=== PATIENT | male | born 1990 | race Caucasian/White ===

== ENCOUNTER 2017-06-14 18:30 | Emergency (ER) | payer MEDICAID ==
[2017-06-14] MEDS ORDERED: Morphine INJ* 4 MG/ML 1 ML CARPUJECT IV ONE ×4 (19:03→21:26)
--- NOTE | 2017-06-14 19:52 | RAD ---
INDICATION: Dog bite to left hand COMPARISON: None. TECHNIQUE: 3 views of the left hand were obtained. FINDINGS: The adequately corticated bones are in normal alignment. No significant focal osseous abnormality or fracture is seen. Joint spaces appear maintained. IMPRESSION: Normal left hand radiograph. If the patient's symptoms persist, follow-up imaging is recommended.
--- NOTE | 2017-06-14 19:53 | ED ---
Upper Extremity Pain - HPI Summary HPI Summary: 26M presents with left hand injury from dog. The pit bull attacked his hand. The dog is a known dog and had his rabies up to date. patient is 10/10 pain. injury is only on left hand. limited ROM due to swelling. no numbness or tingling. has multiples laceration over the hand. is right handed. area is still bleeding. - History of Current Complaint Chief Complaint: EDAnimalBite Stated Complaint: LT WRIST & HAND INJURY Time Seen by Provider: 06/14/17 18:56 - Allergies/Home Medications Allergies/Adverse Reactions: Allergies Allergy/AdvReac Type Severity Reaction Status Date / Time Acetaminophen Allergy Swelling Verified 06/14/17 19:31 PMH/Surg Hx/FS Hx/Imm Hx Endocrine/Hematology History: Denies: Hx Anticoagulant Therapy Cardiovascular History: Denies: Hx Hypertension Infectious Disease History: No Infectious Disease History: Denies: Traveled Outside the [place] in Last 30 Days - Family History Known Family History: Positive: Cardiac Disease - Social History Alcohol Use: Occasionally Substance Use Type: Reports: None Smoking Status (MU): Unknown if Ever Smoked Review of Systems Negative: Fever Negative: Chest Pain Negative: Shortness Of Breath Positive: Edema - left hand Positive: Other - lacerations left hand All Other Systems Reviewed And Are Negative: Yes Physical Exam Triage Information Reviewed: Yes Vital Signs On Initial Exam: Initial Vitals Temp Pulse Resp BP Pulse Ox 98.6 F 95 22 128/57 98 06/14/17 18:42 06/14/17 18:42 06/14/17 18:42 06/14/17 18:42 06/14/17 18:42 Vital Signs Reviewed: Yes Appearance: Positive: Well-Appearing Skin: Positive: Warm, Dry, Other - lacs on dorsum hand: 2cm and 3cm, lac on lateral aspect left thumb 2cm, laceration on palmar aspect thumb 1cm, lac on left palm 3cm, multiple puncture wounds and scratches across left hand Head/Face: Positive: Normal Head/Face Inspection Eyes: Positive: Normal, Conjunctiva Clear Respiratory/Lung Sounds: Positive: Clear to Auscultation, Breath Sounds Present Cardiovascular: Positive: Normal, RRR Musculoskeletal: Positive: Limited @ - left hand, Other - good pulses, capillary refill<2 secs Neurological: Positive: Normal Psychiatric: Positive: Normal Procedures - Laceration/Wound Repair 1-5 Location: Other - left hand Description: Irregular Anesthesia: Local, 1.0% Length, Depth and Shape: lacs on dorsum hand: 2cm and 3cm, lac on lateral aspect left thumb 2cm, laceration on palmar aspect thumb 1cm, lac on left palm 3cm, Betadine Prep?: Yes Irrigated w/ Saline (ccs): 1,000 Laceration/Wound Explored: no foreign body removed Closure: Single Layer Suture Type: Prolene - 4-0 Number of Sutures: 8 - two on palm, one thumb, two side thumb, 1 dorsum and 2 dorsum. Layer Closure?: No Diagnostics - Vital Signs Vital Signs Temp Pulse Resp BP Pulse Ox 06/14/17 19:31 14 06/14/17 18:42 98.6 F 95 22 128/57 98 - Laboratory Lab Statement: Any lab studies that have been ordered have been reviewed, and results considered in the medical decision making process. Course/Dx - Course Course Of Treatment: 26M presents with left hand injury from dog. The pit bull attacked his hand. The dog is a known dog and had his rabies up to date. patient is 10/10 pain. injury is only on left hand. limited ROM due to swelling. no numbness or tingling. has multiples laceration over the hand. xray normal. irrigated extensively. placed 8 sutures, two on palm, one thumb, two side thumb, 1 dorsum and 2 dorsum. placed in thumb spica premade splint due to snuff box tenderness and can take off to clean lacerations. told to follow up with ortho. patient understands and agrees with plan. - Diagnoses Differential Diagnosis/HQI/PQRI: Positive: Fracture (Closed), Other - puncture, lacerations Provider Diagnoses: Dog bite, Laceration of left hand, Scaphoid fracture Discharge - Discharge Plan Condition: Good Disposition: HOME Prescriptions: Amoxicillin/Clavulanate TAB* [Augmentin TAB 875*] 875 mg PO BID #13 tab oxyCODONE TAB* [Roxycodone TAB 5 mg*] 5 mg PO Q6H PRN #20 tab MDD 4 PRN Reason: Pain Patient Education Materials: Care For Your Stitches (ED), Scaphoid Fracture (ED ) Referrals: No Primary Care Phys,NOPCP [Primary Care Provider] - Zoey Bush MD [Medical Doctor] - Additional Instructions: Wash area with soap and water once a day Place Neosporin on area Take augmentin twice a day for 7 days Return to ED to have sutures removed in 10-14 days Follow up with ortho You potential have a scaphoid fracture, Keep splint on area unless washing area Take ibuprofen every 6 hours and use narcotic for break through pain Place ice on area Return to ED if develop any sign of infection such as spreading redness, pus, or fever, or any new or worsening symptoms
[2017-06-14] MEDS ORDERED: Amoxicillin/Clavulanate TAB* 875 MG PO ONE (20:22)
[2017-06-14] MEDS ORDERED: Ondansetron INJ* 2 MG/ML VIAL IV ONE (21:26)
[2017-06-14] MEDS ORDERED: Lidocaine 1% INJ* 10 MG/ML 30 ML SDV ONE ×2 (21:46)
[2017-06-14] MEDS ORDERED: oxyCODONE TAB* 5 MG TAB PO ONE (22:25)
[2017-06-14] MEDS ORDERED: Tetan/Diph/Pertus SYR(Tdap)* 0.5 ML SYR(BOOSTRIX) use SYR IM ONE (22:26)
[2017-06-15 00:22] VITALS: BP 129/58
== END 2017-06-14 23:58 | disposition home or self-care (01) ==
LOC: ED 18:30
DX: S61.412A Laceration without foreign body of left hand, initial encounter (principal); S62.002A Unspecified fracture of navicular [scaphoid] bone of left wrist, initial encounter for closed fracture; W54.0XXA Bitten by dog, initial encounter; Y93.9 Activity, unspecified; Y92.9 Unspecified place or not applicable
CPT/HCPCS: 12002; 90471; 90715; 96374; 96375; 99285; A9270-GY; J2001; J2270; J2405

== ENCOUNTER 2019-04-13 17:30 | Emergency (ER) | payer MEDICAID, OTHER ==
[2019-04-13 20:44] LABS: Urine Appearance Cloudy; Urine Bilirubin Negative (Negative); Urine Blood Negative (Negative); Urine Color Yellow; Urine Glucose Negative (Negative); Urine Ketones Negative (Negative); Urine Nitrite Negative (Negative); Urine Protein Negative (Negative); Urine Specific Gravity 1.016 (1.010-1.030); Urine Urobilinogen Negative (Negative)
--- NOTE | 2019-04-13 20:56 | ED ---
Substance Abuse/Use - HPI Summary HPI Summary: This patient is a 28 year old M presenting to [facility] with a chief complaint of heroin use today and methamphetamine use 2 days ago. Pt is in the ED for detox request and says he is in "bad shape." He states he was on a heroin and methamphetamine binge for 1 month. Pt was previously at [facility] ([facility]) for marijuana use, but will re-enter the [facility] rehabilitation program tomorrow morning. Pt has been addicted to opiates since the age of 16 and has not taken Suboxone in 2-3 days. The pt rates the pain 10/ 10 in severity. Symptoms aggravated by nothing. Symptoms alleviated by nothing. Pt reports intermittent penile pain and is erythematous, back pain, right foot losing sensation, and right lower thigh pain. - History Of Current Complaint Chief Complaint: EDDetoxRequest Stated Complaint: NEED TO BE CHECKED OUT PER PT Time Seen by Provider: 04/13/19 18:53 Hx Obtained From: Patient Onset/Duration of Drug/ETOH Abuse: Days - heroin taken today, methamphetamine taken 2 days ago Ingestion History: Type/Name Of Drug - heroin and methamphetamine binge for 1 month Overdose Characteristics: Other - heroin was injected Aggravating Factor(s): Nothing Alleviating Factor(s): Nothing Associated Signs And Symptoms: Other: - positive - intermittent penile pain and is erythematous, back pain, right foot losing sensation, and right lower thigh pain - Allergies/Home Medications Allergies/Adverse Reactions: Allergies Allergy/AdvReac Type Severity Reaction Status Date / Time acetaminophen [From Tylenol] Allergy Hives Verified 04/13/19 17:35 PMH/Surg Hx/FS Hx/Imm Hx Previously Healthy: No Sensory History: Denies: Hx Cataracts, Hx Vision Problem, Hx Deafness, Hx Hearing Aid, Hx Hearing Problem, Hx Auditory Problems Opthamlomology History: Denies: Hx Cataracts, Hx Legally Blind EENT History: Denies: Hx Deafness, Hx Auditory Problems - Surgical History Surgical History: Yes Surgery Procedure, Year, and Place: pylonital cyst removal Infectious Disease History: Yes Infectious Disease History: Denies: Traveled Outside the [place] in Last 30 Days - Family History Known Family History: Positive: None - Social History Alcohol Use: Occasionally Hx Substance Use: Yes Substance Use Type: Reports: Heroin, Marijuana, Other Substance Use Comment - Amount & Last Used: meth Smoking Status (MU): Unknown if Ever Smoked Review of Systems Genitourinary: Other - positive - intermittent penile pain and is erythematous Musculoskeletal: Other - positive - back pain and right lower thigh pain Neurological: Other - positive - right foot losing sensation Psychological: Other - positive - methamphetamine and heroin use All Other Systems Reviewed And Are Negative: Yes Physical Exam - Summary Physical Exam Summary: Appearance: The patient is well-nourished in no acute distress and in no acute pain. Skin: Diffuse excoriations over the body. Penis has mild erythema and flakiness. Two open drained pylonital cysts that are not draining currently, mildly erythamous, no fluctuance. The skin is warm and dry and skin color reflects adequate perfusion. HEENT: The head is normocephalic and atraumatic. The pupils are equal and reactive. The conjunctivae are clear and without drainage. Nares are patent and without drainage. Mouth reveals moist mucous membranes and the throat is without erythema and exudate. The external ears are intact. The ear canals are patent and without drainage. The tympanic membranes are intact. Neck: The neck is supple with full range of motion and non-tender. There are no carotid bruits. There is no neck vein distension. Respiratory: Chest is non-tender. Lungs are clear to auscultation and breath sounds are symmetrical and equal. Cardiovascular: Heart is regular rate and rhythm. There is no murmur or rub auscultated. There is no peripheral edema and pulses are symmetrical and equal. Abdomen: The abdomen is soft and non-tender. There are normal bowel sounds heard in all four quadrants and there is no organomegaly palpated. Musculoskeletal: There is no back tenderness noted. Extremities are non-tender with full range of motion. There is good capillary refill. There is no peripheral edema or calf tenderness elicited. Neurological: Patient is alert and oriented to person, place and time. The patient has symmetrical motor strength in all four extremities. Cranial nerves are grossly intact. Deep tendon reflexes are symmetrical and equal in all four extremities. Psychiatric: The patient has an appropriate affect and does not exhibit any anxiety or depression. Triage Information Reviewed: Yes Vital Signs On Initial Exam: Initial Vitals Temp Pulse Resp BP Pulse Ox 98.3 F 104 18 131/109 97 04/13/19 17:34 04/13/19 17:34 04/13/19 17:34 04/13/19 17:34 04/13/19 17:34 Vital Signs Reviewed: Yes Diagnostics - Vital Signs Vital Signs Temp Pulse Resp BP Pulse Ox 04/13/19 17:34 98.3 F 104 18 131/109 97 - Laboratory Lab Results: Lab Results 04/13/19 Range/Units 20:32 Urine Color Yellow Urine Appearance Cloudy Urine pH 6.0 (5-9) Ur Specific [place] 1.016 (1.010-1.030) Urine Protein Negative (Negative) Urine Ketones Negative (Negative) Urine Blood Negative (Negative) Urine Nitrate Negative (Negative) Urine Bilirubin Negative (Negative) Urine Urobilinogen Negative (Negative) Ur Leukocyte Esterase Negative (Negative) Urine Glucose Negative (Negative) Urine Ascorbic Acid * A (Negative) Result Diagrams: 04/13/19 20:50 04/13/19 20:50 Lab Statement: Any lab studies that have been ordered have been reviewed, and results considered in the medical decision making process. Course/Dx - Course Course Of Treatment: Mr. Gottlieb has reached the point where he wants to go back to cars and rehabilitation. He will be allowed in tomorrow will get restarted on his Suboxone. His CPK is a little bit high at I am rehydrating him. - Diagnoses Provider Diagnoses: Polysubstance dependence Discharge - Sign-Out/Discharge Documenting (check all that apply): Patient Departure Patient Received Moderate/Deep Sedation with Procedure: No - Discharge Plan Condition: Stable Disposition: HOME Referrals: No Primary Care Phys,NOPCP [Primary Care Provider] - - Billing Disposition and Condition Condition: STABLE Disposition: Home - Attestation Statements Document Initiated by Scribe: Yes Documenting Scribe: Luiz Ross Provider For Whom Janis is Documenting (Include Credential): Dr. Milton Sloan MD Scribe Attestation: I, Luiz Ross, scribed for Dr. Milton Sloan MD on 04/13/19 at 2152. Scribe Documentation Reviewed: Yes Provider Attestation: The documentation as recorded by the Luiz esteban accurately reflects the service I personally performed and the decisions made by me, Dr. Milton Sloan MD Status of Scribe Document: Viewed
[2019-04-13 20:59] LABS: ABS Eosinophils 0.2 10^3/ul (0-0.6); ABS Lymphocytes 1.2 10^3/ul (1.0-4.8); ABS Monocytes 0.4 10^3/ul (0-0.8); ABS Neutrophils 2.7 10^3/ul (1.5-7.7); Eosinophil % 4.4 %; Hematocrit 39 % (42-52); Hemoglobin 13.7 g/dL (14.0-18.0); Mean Corpuscular HGB Conc 35 g/dL (31-36); Mean Corpuscular Hemoglobin 28 pg (27-31); Mean Corpuscular Volume 82 fL (80-94); Mean Platelet Volume 7.7 fL (7.4-10.4); Nucleated Red Blood Cells % 0.1; Platelet Count 170 10^3/uL (150-450); Red Blood Count 4.81 10^6 /uL (4.18-5.48); Red Cell Distribution Width 14 % (10-15); White Blood Count 4.5 10^3/uL (3.5-10.8)
[2019-04-13 21:02] LABS: Urine Benzodiazepine Screen None Detected (None Detect); Urine Opiates Screen Presumptive Positive (None Detect)
[2019-04-13 21:18] LABS: Albumin 4.2 g/dL (3.2-5.2); Albumin/Globulin Ratio 1.3 (1-3); BUN/Creatinine Ratio 10.2 (8-20); C Reactive Protein 15.43 mg/L (<8.01); Calcium 9.4 mg/dL (8.6-10.3); EGFR African American 111.9 (>60); EGFR Non-African American 92.5 (>60); Globulin 3.2 g/dL (2-4); Potassium 3.6 mmol/L (3.5-5.0); Total Bilirubin 0.6 mg/dL (0.2-1.0); Total Protein 7.4 g/dL (6.4-8.9)
[2019-04-13] MEDS ORDERED: NS 0.9% 1000 ML** 1,000 ML IV ONE (21:53)
[2019-04-13 22:33] VITALS: BP 132/69
[2019-04-15 20:32] LABS: Hepatitis B Surface Antigen Negative (Negative)
[2019-04-15 21:01] LABS: Hepatitis C Antibody Reactive (Negative)
== END 2019-04-13 22:41 | disposition home or self-care (01) ==
LOC: MERGE 17:30 → ED 17:30
DX: F19.20 Other psychoactive substance dependence, uncomplicated (principal); Z88.8 Allergy status to other drugs, medicaments and biological substances
CPT/HCPCS: 36415; 80053; 80074; 80307; 81003; 82550; 85025; 86140; 87522; 96360; 99282